=== PATIENT | male | born 1980 | race African-American/Black ===

== ENCOUNTER 2024-11-21 21:27 | Emergency (ER) | payer BC, SELFPAY ==
[2024-11-21 21:29] VITALS: BP 138/93
[2024-11-21 21:45] LABS: Hematocrit 45.0 % (39.0-52.0); Hemoglobin 14.4 g/dL (13.0-18.0); Mean Corp Hgb Conc. 32.0 g/dL (33.0-37.0); Mean Corpuscular Volume 75.4 fL (80.0-94.0); Nucleated Red Blood Cells % 0 % (-); Platelet Count 288 10^3/uL (130-400); Red Cell Dist. Width 13.0 % (11.5-14.5)
[2024-11-21 22:08] LABS: ALT (SGPT) 22 U/L (0-50); AST (SGOT) 19 U/L (17-59); Albumin 4.7 g/dl (3.5-5.0); Alkaline Phosphatase 62 U/L (38-126); Blood Urea Nitrogen 19 mg/dl (9-20); Calcium 9.0 mg/dl (8.4-10.2); Carbon Dioxide 26 mmol/L (22-30); Chloride 106 mmol/L (98-107); Glucose 122 mg/dl (70-99); Lipase 104 U/L (23-300); Potassium 4.1 mmol/L (3.5-5.1); Sodium 139 mmol/L (135-145); Total Protein 7.9 g/dl (6.3-8.2); eGFR > 60.00
--- NOTE | 2024-11-21 23:24 | ED.GENMED ---
History of Present Illness
<Yaneth Andrade MD, Resident - Last Filed: 11/22/24 00:55>
General
Chief Complaint: Abdominal Symptoms
Source: patient
Time Seen by Provider: 11/21/24 23:22
History of Present Illness
History of Present Illness:
Patient is a 43-year-old male who presents to the emergency department with an upset stomach and diarrhea that has been occurring throughout the day. He has a history of hypothyroidism and he takes levothyroxine; he takes loratadine and
cyclobenzaprine as well. Patient was in his normal state of health until the evening prior to his presentation When he felt like his 'stomach was being weird' after eating [employer]. One of the patient's family members had a slightly upset stomach
without diarrhea. Patient went to sleep and when he woke up he was experiencing diarrhea and had diarrhea multiple times throughout the day. Patient's abdominal pain as the diarrhea progressed. He was prior to his presentation to the emergency
department and then continue to have episodes of diarrhea while at the emergency department. The patient's diarrhea is liquidy without any blood or unusual odor. his oral intake has been poor and he has mostly been consuming liquids. He had soup
in the afternoon. He took 2 loperamide in the afternoon in hopes of improving his symptoms but it did not reduce his diarrhea. Patient has no fever, shortness of breath, chest pain, or nausea.
Past History
<Yaneth Andrade MD, Resident - Last Filed: 11/22/24 00:55>
Past History
ED Past Medical History: None
ED Past Surgical History: None
Social History
Tobacco: Non-smoker
Alcohol: None
Drug: None
Personal:
Living: with family
Employment: Employed
Family History
Family History: Diabetes ( mother has diabetes), Hypertension ( mother has hypertension) and Other ( father has Parkinson's, Brother has chronic kidney disease)
Review of Systems
<Yaneth Andrade MD, Resident - Last Filed: 11/22/24 00:55>
Review of Systems
Constitutional: Reports no symptoms
EENT: Reports no symptoms
Respiratory: Reports no symptoms
Cardiac: Reports no symptoms
ABD/GI: Reports abdominal pain and diarrhea
: Reports no symptoms
Musculoskeletal: Reports no symptoms
Skin: Reports no symptoms
Neurological: Reports no symptoms
Endocrine: Reports no symptoms
Hematologic/Lymphatic: Reports no symptoms
Psychiatric: Reports no symptoms
Phy Exam
<Yaneth Andrade MD, Resident - Last Filed: 11/22/24 00:55>
General Physical Exam
General Presentation: well appearing and no apparent distress
General age: appears stated age
General Skin: warm and dry
General Habitus: normal
General Mental: alert
General Hydration: appears well hydrated
Cardiovascular Exam
Cardiovascular Exam: regular rate/rhythm, no edema, no gallop, no JVD, no murmur and normal peripheral pulses
Gastrointestinal Exam
Gastrointestinal Exam: normal bowel sounds, non tender, soft, no organomegaly, no pulsatile mass, non distended and no cva tenderness
Auscultation of Abdomen: normal
Neurological Exam
Neurological Exam: alert, oriented x3 and normal reflexs
Course
<Yaneth Andrade MD, Resident - Last Filed: 11/22/24 00:55>
Orders/Labs/Results
Orders:
Orders
11/21/24 21:38
Complete Blood Count/With Diff Urgent
Comprehensive Metabolic Panel Urgent
Lipase Urgent
11/21/24 23:47
Diphenoxylate / Atropine [Lomotil] 1 tablet PO NOW STA
11/22/24 00:05
Hyoscyamine Sulfate [Levsin] 0.25 mg PO NOW STA
11/22/24 00:36
Ondansetron Orally Disint [Zofran Odt (Orally Disintegrating)] 4 mg .ROUTE .STK-MED ONE
Ondansetron Orally Disint [Zofran Odt (Orally Disintegrating)] 4 mg PO NOW STA
11/22/24 01:00
STOOL [C difficile Antigen & Toxins] Urgent
ORAL Source: Feces/Stool
Specimen Description:
Date Specimen was Collected: 11/22/24
Time Specimen was Collected: 00:59
Stool Culture Urgent
ORAL Source: Feces/Stool
Specimen Description:
Date Specimen was Collected: 11/22/24
Time Specimen was Collected: 00:59
Abnormal Lab Results
11/21/24
21:38
MCV 75.4 L fL
(80.0-94.0)
MCH 24.1 L pg
(27.0-31.0)
MCHC 32.0 L g/dL
(33.0-37.0)
MPV 10.6 H fL
(7.4-10.4)
Lymphocytes % 18.4 L %
(20.5-51.1)
Glucose 122 H mg/dl
(70-99)
11/21/24 21:38
11/21/24 21:38
Vital Signs
Initial and Last Documented VS:
Initial Vital Signs
Temp Pulse Resp BP Pulse Ox
98.4 F 79 16 138/93 100
11/21/24 21:29 11/21/24 21:29 11/21/24 21:29 11/21/24 21:29 11/21/24 21:29
Last Documented Vital Signs
Temp Pulse Resp BP Pulse Ox
98.4 F 79 18 138/93 100
11/21/24 21:29 11/21/24 21:29 11/21/24 23:40 11/21/24 21:11/21/24 23:40
<Juhi Blanton DO - Last Filed: 11/22/24 02:19>
Orders/Labs/Results
Orders:
Orders
11/21/24 21:38
Complete Blood Count/With Diff Urgent
Comprehensive Metabolic Panel Urgent
Lipase Urgent
11/21/24 23:47
Diphenoxylate / Atropine [Lomotil] 1 tablet PO NOW STA
11/22/24 00:05
Hyoscyamine Sulfate [Levsin] 0.25 mg PO NOW STA
11/22/24 00:36
Ondansetron Orally Disint [Zofran Odt (Orally Disintegrating)] 4 mg .ROUTE .STK-MED ONE
Ondansetron Orally Disint [Zofran Odt (Orally Disintegrating)] 4 mg PO NOW STA
11/22/24 01:00
STOOL [C difficile Antigen & Toxins] Urgent
ORAL Source: Feces/Stool
Specimen Description:
Date Specimen was Collected: 11/22/24
Time Specimen was Collected: 00:59
Stool Culture Urgent
ORAL Source: Feces/Stool
Specimen Description:
Date Specimen was Collected: 11/22/24
Time Specimen was Collected: 00:59
Abnormal Lab Results
11/21/24
21:38
MCV 75.4 L fL
(80.0-94.0)
MCH 24.1 L pg
(27.0-31.0)
MCHC 32.0 L g/dL
(33.0-37.0)
MPV 10.6 H fL
(7.4-10.4)
Lymphocytes % 18.4 L %
(20.5-51.1)
Glucose 122 H mg/dl
(70-99)
11/21/24 21:38
11/21/24 21:38
Vital Signs
Initial and Last Documented VS:
Initial Vital Signs
Temp Pulse Resp BP Pulse Ox
98.4 F 79 16 138/93 100
11/21/24 21:29 11/21/24 21:29 11/21/24 21:29 11/21/24 21:29 11/21/24 21:29
Last Documented Vital Signs
Temp Pulse Resp BP Pulse Ox
98.4 F 79 18 138/93 100
11/21/24 21:29 11/21/24 21:29 11/21/24 23:40 11/21/24 21:29 11/21/24 23:40
<Yaneth Andrade MD, Resident - Last Filed: 11/22/24 00:55>
*Pulse Oximetry
SaO2: 100
Oxygen Mode of Delivery: Room air
Patient hypoxic: no
*Critical Care Note
Total Time (30-74mins, 75-104mins- exclusive of procedures): 60
<Yaneth Andrade MD, Resident - Last Filed: 11/22/24 00:55>
Update Note
Update Note:
Problem List:
Nonbloody diarrhea
Stomach pain
Poor oral intake
Plan:
CBC and BMP ordered
supportive measures with encouraged oral fluid intake
Lomotil
hyoscyamine
Differential Diagnoses:
bacterial gastroenteritis
viral gastroenteritis
Radiology: not applicable
EKG: not applicable
Labs: CBC and BMP unremarkable
Updates:
patient continues to have diarrhea and in the emergency department
oral fluids given
Lomotil and hyoscyamine given
patient had an episode of vomiting� Zofran given
ED Attending Note
<Yaneth Andrade MD, Resident - Last Filed: 11/22/24 00:55>
-
Portions of this chart may have been created with voice recognition software.� Occasional wrong word or��sound alike� substitutions may have occurred due to the inherent limitations of voice recognition software.
<Juhi Blanton DO - Last Filed: 11/22/24 02:19>
ED Attending Note
Patient seen and examined by attending physician: Yes
I performed a history and physical exam of patient and discussed management with resident, I reviewed resident's note and agree with documented findings and plan of care.: Yes
ED Attending Note:
This is a 43-year-old gentleman with history of hypothyroidism who presents with generalized abdominal crampy pain, intermittent nausea and diarrhea that began earlier today. He has past 6-8 watery nonbloody bowel movements. Intermittent mild
nausea but has had no vomiting. No fever nor chills. He denies dizziness nor lightheadedness. No chest pain or cough no shortness of breath.
No history of similar episodes in the past.
No recent travel nor recent antibiotic use.
No prior abdominal surgeries.
He and his family ate out to dinner last night and he does admit to very mild queasiness last night and a family member with similar mild queasiness which has since resolved. Diarrhea began this afternoon. No other family members however with
similar symptoms.
He took 2 loperamide this afternoon.
43-year-old male appears his stated age, awake and alert, pleasant, appears in no acute distress. Vital signs within normal limits. Afebrile.
Since arrival to the ED he has been in and out of the bathroom at least twice to pass liquid brown stool, small amounts each time. He continues to have no hematochezia.
Oral mucosa is moist.
Heart is regular rate and rhythm.
Abdomen is soft, nondistended, no appreciable tenderness. Mildly hypoactive bowel sounds.
Concern for acute gastroenteritis either viral versus foodborne. Bowel obstruction, colitis, inflammatory bowel disease are much less likely.
Labs are reassuring and within normal limits.
Will plan for dose of Lomotil and Levsin. Will consider stool cultures if obtained.
Will trial oral fluid rehydration.
02:15
Patient resting comfortably. Feeling improved after a dose of Lomotil, Levsin and Zofran.
Now tolerating sips of water without return of symptoms.
He remains afebrile.
Abdomen remains soft without appreciable tenderness.
Will discharge to home with recommendations to limit his diet to clear liquids today, slowly advance to soft bland foods beginning tomorrow. Will prescribe
Lomotil for as needed diarrhea, Zofran for as needed nausea and Levsin for as needed abdominal cramps.
Follow-up with PCP for recheck.
Return precautions discussed.
Discharge Plan
Departure
Patient Disposition: Home (Routine Discharge)
Date of Disposition: 11/22/24
Time of Disposition: 02:15
Patient with high blood pressure during this ER visit?: No
Condition: Good
Discharge Problem:
Acute gastroenteritis
Instructions: Food poisoning, Diarrhea in teens and adults, Clear Liquid Diet
Prescriptions:
New
diphenoxylate-atropine [Lomotil] 2.5-0.025 mg tablet
1 tab PO QID PRN (Reason: diarrhea) Qty: 10 0RF
dicyclomine 20 mg tablet
20 mg PO QID PRN (Reason: abdominal pain) Qty: 20 0RF
ondansetron 4 mg tablet,disintegrating
4 mg PO QID PRN (Reason: nausea and vomiting) Qty: 20 0RF
No Action
loratadine [Claritin] 10 mg Tablet
10 mg PO DAILY
levothyroxine 112 mcg Capsule
112 mcg PO DAILY
cyclobenzaprine 10 mg tablet
10 mg PO TID PRN (Reason: muscle spasm) Qty: 14 0RF
Referrals:
UNKNOWN - PT DOES,NOT KNOW [Family Provider]
Interventions
Interventions:
*Risk Screen - Suicide Last Done: 11/21/24 21:29
*General Assessment Last Done: 11/21/24 21:29
*Neglect/Abuse Screening Last Done: 11/21/24 21:29
ZY-Hgrjyf-[id number] Assessment Last Done: 11/21/24 23:40
Discharge Date and Time
Print Language: BULGARIAN
[2024-11-21 23:39] VITALS: BMI 32.6
[2024-11-22] MEDS: LOMOTIL 1 TABLET PO (00:15)
[2024-11-22] MEDS: ZOFRAN ODT (ORALLY DISINTEGRATING) 4 MG PO (00:37)
[2024-11-22] MEDS: LEVSIN 0.25 MG PO (01:08)
[2024-11-22 02:23] VITALS: BP 136/88
== END 2024-11-22 02:26 | disposition home or self-care (01) ==
LOC: EMR 21:27
PROVIDERS: Emergency Medicine; EMERGENCY PHYSICIAN Emergency Medicine
DX: K52.9 Noninfective gastroenteritis and colitis, unspecified (principal); E03.9 Hypothyroidism, unspecified; Z79.899 Other long term (current) drug therapy
CPT/HCPCS: 99283; 80053; 83690; 85025; 87045; 87046; 87324; 87427; 87449